=== PATIENT | female | born 1935 | race Hispanic/Latino ===

== ENCOUNTER 2017-09-30 20:56 | Observation (INO) | payer MEDICARE ==
[~2017-09-30] VITALS: Ht 154.9 cm; Wt 63.5 kg
[2017-09-30] MEDS ORDERED: SODIUM CHLORIDE 0.9% 500ML 500 ML IV ONE (21:21)
[2017-09-30 21:45] LABS: BASOPHILS % (AUTO) 0.4 % (0.0-5.0); EOSINOPHILS % (AUTO) 0.5 % (0.0-8.0); HEMATOCRIT 44.5 % (36-48); LYMPHOCYTES % (AUTO) 6.8 % (21.0-51.0); MEAN CORPUSCULAR HEMOGLOBIN 30.8 pg (27.0-33.0); MEAN CORPUSCULAR HGB CONC 35.4 g/dL (32.0-36.0); MONOCYTES % (AUTO) 2.5 % (3.0-13.0); NEUTROPHILS % (AUTO) 89.8 % (40.0-77.0); PLATELET COUNT (AUTO) 212 K/uL (130-400); RED BLOOD CELL COUNT(AUTO) 5.11 MIL/uL (4.00-5.50); WHITE BLOOD COUNT (AUTO) 9.1 K/uL (4.8-10.8)
[2017-09-30 21:57] LABS: RAPID GROUP A STREP NEGATIVE (NEGATIVE)
[2017-09-30 21:57] LABS: INR 0.95 (0.85-1.15); PARTIAL THROMBOPLASTIN TIME 25.3 SEC (26.3-35.5)
[2017-09-30 22:01] LABS: CREATININE 0.8 mg/dL (0.5-1.5); POTASSIUM 3.3 mmol/L (3.5-5.1)
[2017-09-30 22:06] LABS: ALBUMIN 4.4 g/dL (3.5-5.0); BILIRUBIN,TOTAL 0.7 mg/dL (0.2-1.0)
[2017-09-30 22:26] LABS: APPEARANCE,URINE Clear (CLEAR); BILIRUBIN,URINE Negative (NEGATIVE); COLOR,URINE Yellow (YELLOW); GLUCOSE, URINE (UA) Negative (NEGATIVE); KETONES,URINE 15 mg/dL (NEGATIVE); LEUKOCYTE ESTERASE ,URINE Small (NEGATIVE); NITRATE,URINE Negative (NEGATIVE); OCCULT BLOOD,URINE Negative (NEGATIVE); PH,URINE 5.5 (5.0-8.0); PROTEIN,URINE Negative (NEGATIVE); UROBILINOGEN,URINE 0.2 mg/dL (0.2-1.0)
[2017-09-30 22:30] LABS: B-TYPE NATRIURETIC PEPTIDE 13 pg/mL (0-100)
[2017-09-30] MEDS ORDERED: IOPAMIDOL-370 75 ML VIAL IV ONE (22:37)
[2017-09-30 22:44] LABS: BACTERIA,URINE Few /HPF (None Seen); MUCUS,URINE Many LPF (None Seen); RBC,URINE 0-1 /HPF (0-1); SQUAMOUS EPITHELIAL CELL,UR Many /HPF (0-2)
[2017-09-30] MEDS ORDERED: POTASSIUM CHLORIDE 10% ELIXIR 20 MEQ/15 ML UDCUP ONE (23:32)
[2017-09-30] MEDS ORDERED: MORPHINE SULFATE 4 MG/1ML SYG ONE (23:50)
[2017-10-01] MEDS ORDERED: LEVOFLOXACIN 500 MG/D5W 100 ML 100 ML ONE (00:42)
[2017-10-01] MEDS ORDERED: METRONIDAZOLE 500MG/100ML BAG 100 ML ONE ×2 (00:42→07:31)
[2017-10-01] MEDS ORDERED: ONDANSETRON HCL MDV 20ML 2 MG/ML VIAL ONE (01:41)
[2017-10-01] MEDS ORDERED: FAMOTIDINE/PF 20 MG/2 ML VIAL IV ONE (07:32)
[2017-10-01] MEDS ORDERED: SODIUM CHLORIDE 0.9% 1000ML 1,000 ML IV SCH (10:48)
[2017-10-01] MEDS ORDERED: NITROGLYCERIN 0.4 MG SL TAB SL PRN (11:00)
[2017-10-01] MEDS ORDERED: MORPHINE SULFATE 2 MG/ML 1ML SYG IV PRN (11:00)
[2017-10-01] MEDS ORDERED: LACTULOSE 20 GM/30 ML UDCUP PO PRN (11:00)
[2017-10-01] MEDS ORDERED: ONDANSETRON HCL 4 MG/2 ML VIAL IV PRN (11:00)
[2017-10-01] MEDS ORDERED: GUAIFENESIN-DM 200/20 MG 10 ML PO PRN (11:00)
[2017-10-01] MEDS ORDERED: MAG HYDROX/AL HYDROX/SIMETH ES 30 ML SUSP UDCUP PO PRN (11:00)
[2017-10-01] MEDS ORDERED: ACETAMINOPHEN 325 MG TAB PO PRN ×2 (11:00)
[2017-10-01] MEDS ORDERED: HYDRALAZINE HCL 20 MG/ML VIAL IV PRN (11:00)
[2017-10-01] MEDS: METRONIDAZOLE 500MG/100ML BAG 100 ML IV SCH ×3 (11:00→22:17)
[2017-10-01] MEDS ORDERED: ONDANSETRON HCL MDV 20ML 2 MG/ML VIAL IV PRN (11:06)
[2017-10-01 16:00] VITALS: BP 142/73
[2017-10-01] MEDS ORDERED: OMEP40CA37 PO (19:07)
[2017-10-01] MEDS ORDERED: LEVO125T11 PO (19:13)
[2017-10-01] MEDS ORDERED: AMLODIPINE PO (19:13)
[2017-10-01] MEDS ORDERED: TRAM50TA4 PO (19:13)
[2017-10-01 19:30] VITALS: BP 147/77
[2017-10-01] MEDS: ACETAMINOPHEN-CODEINE 300/30MG TAB PO PRN (21:27)
[2017-10-01 23:31] VITALS: BP 135/67
[2017-10-02 04:20] VITALS: BP 135/70
[2017-10-02 04:38] LABS: HEMATOCRIT 37.7 % (36-48); MEAN CORPUSCULAR HEMOGLOBIN 30.8 pg (27.0-33.0); MEAN CORPUSCULAR HGB CONC 35.1 g/dL (32.0-36.0); MEAN CORPUSCULAR VOLUME 87.6 fL (79-99); NUCLEATED RED BLOOD CELLS 0.1 % (0.0-0.19); PLATELET COUNT (AUTO) 180 K/uL (130-400); RED CELL DISTRIBUTION WIDTH 14.4 % (11.0-15.5); WHITE BLOOD COUNT (AUTO) 4.3 K/uL (4.8-10.8)
[2017-10-02 04:45] LABS: CREATININE 0.8 mg/dL (0.5-1.5); POTASSIUM 3.6 mmol/L (3.5-5.1)
[2017-10-02] MEDS: METRONIDAZOLE 500MG/100ML BAG 100 ML IV SCH (06:02)
[2017-10-02 08:00] VITALS: BP 138/77
[2017-10-02] MEDS: ACETAMINOPHEN-CODEINE 300/30MG TAB PO PRN (09:23)
[2017-10-02] MEDS ORDERED: FAMOTIDINE 20MG TAB 20 MG TAB PO SCH (13:00)
== END 2017-10-02 11:10 | disposition home or self-care (01) ==
LOC: EDH 20:56 → EDHIP 10-01 → 3BH 10-01 15:44
PROVIDERS: ADMIT Family Medicine; ATTEND Family Medicine
DX: K52.9 Noninfective gastroenteritis and colitis, unspecified (principal); I10 Essential (primary) hypertension; E78.5 Hyperlipidemia, unspecified; E87.6 Hypokalemia; E86.0 Dehydration; J43.9 Emphysema, unspecified; N39.0 Urinary tract infection, site not specified; Z82.49 Family history of ischemic heart disease and other diseases of the circulatory system; Z83.3 Family history of diabetes mellitus; Z90.710 Acquired absence of both cervix and uterus; Z90.49 Acquired absence of other specified parts of digestive tract
CPT/HCPCS: 36415 ×2; 70450; 74177; 80048; 80053; 81001; 82550; 83605; 83690; 83880; 84484; 85025; 85027; 85610; 85730; 87804 ×2; 87880; 93005; 96361 ×2; 96365; 96366 ×2; 99285; G0378 ×35; J1956; J2270; J3490 ×5; J7040; Q9967

== ENCOUNTER 2019-10-18 14:25 | Emergency (ER) | payer MEDICARE ==
[2019-10-18] MEDS ORDERED: ONDANSETRON HCL 4 MG/2 ML VIAL ONE (15:03)
== END 2019-10-18 17:26 | disposition home or self-care (01) ==
LOC: EDH 14:25
DX: R11.0 Nausea (principal); M54.5 Low back pain; F41.9 Anxiety disorder, unspecified; E03.9 Hypothyroidism, unspecified; R63.0 Anorexia; J44.9 Chronic obstructive pulmonary disease, unspecified; I10 Essential (primary) hypertension; K21.9 Gastro-esophageal reflux disease without esophagitis; Z90.710 Acquired absence of both cervix and uterus; Z90.49 Acquired absence of other specified parts of digestive tract; Z98.890 Other specified postprocedural states
CPT/HCPCS: 36415; 71045; 74176; 80053; 80305; 81003; 82150; 82550; 83690; 84443; 84484 ×2; 85025; 85610; 85730; 93005 ×2; 96374; 99285; J2405

== ENCOUNTER 2021-11-03 10:41 | Emergency (ER) | payer MEDICARE ==
[~2021-11-03] VITALS: Ht 152.4 cm; Wt 68.0 kg
[~2021-11-03 10:41] MED LIST: AMLO-257 PO; LEVO125T11 PO; LORA0.5T83 PO; TRAM50TA4 PO
[2021-11-03 11:29] LABS: EOSINOPHILS % (AUTO) 1.8 % (0.0-8.0); HEMATOCRIT 39.5 % (36-48); LYMPHOCYTES % (AUTO) 26.7 % (21.0-51.0); MEAN CORPUSCULAR HEMOGLOBIN 29.6 pg (27.0-33.0); MEAN CORPUSCULAR HGB CONC 34.4 g/dL (32.0-36.0); MEAN CORPUSCULAR VOLUME 85.9 fL (79-99); MONOCYTES % (AUTO) 7.4 % (3.0-13.0); NEUTROPHILS % (AUTO) 62.8 % (40.0-77.0); PLATELET COUNT (AUTO) 193 K/uL (130-400); RED CELL DISTRIBUTION WIDTH 12.7 % (11.0-15.5); WHITE BLOOD COUNT (AUTO) 6.7 K/uL (4.8-10.8)
[2021-11-03 11:38] LABS: CREATININE 0.6 mg/dL (0.5-1.5); POTASSIUM 3.8 mmol/L (3.5-5.1)
[2021-11-03 11:43] LABS: BILIRUBIN,TOTAL 0.5 mg/dL (0.2-1.0); TOTAL PROTEIN, SERUM 7.5 g/dL (6.0-8.3)
[2021-11-03 12:03] LABS: APPEARANCE,URINE CLEAR (CLEAR); BILIRUBIN,URINE NEGATIVE (NEGATIVE); COLOR,URINE YELLOW (YELLOW); GLUCOSE, URINE (UA) NEGATIVE (NEGATIVE); KETONES,URINE NEGATIVE (NEGATIVE); LEUKOCYTE ESTERASE ,URINE TRACE (NEGATIVE); NITRATE,URINE NEGATIVE (NEGATIVE); OCCULT BLOOD,URINE NEGATIVE (NEGATIVE); PH,URINE 5.5 (5.0-8.0); PROTEIN,URINE NEGATIVE (NEGATIVE); UROBILINOGEN,URINE 0.2 mg/dL (0.2-1.0)
[2021-11-03 12:36] LABS: BACTERIA,URINE Few /HPF (None Seen); RBC,URINE None Seen /HPF (0-1)
[2021-11-03] MEDS ORDERED: 0.9% NACL 500ML IV.SOLN 500 ML IV ONE (15:00)
[2021-11-03] MEDS ORDERED: METOCLOPRAMIDE 10 MG/2 ML VIAL IVP ONE (15:00)
[2021-11-03] MEDS ORDERED: DiphenhydrAMINE HCL 50 MG/ML VIAL IV ONE (15:00)
[2021-11-03] MEDS ORDERED: KETOROLAC 15MG/ML VIAL (15MG/ML) IV ONE (17:00)
[2021-11-03 17:39] VITALS: BP 145/75
== END 2021-11-03 17:35 | disposition home or self-care (01) ==
LOC: EDH 10:41
DX: R51.9 Headache, unspecified (principal); I10 Essential (primary) hypertension; Z79.899 Other long term (current) drug therapy; Z98.890 Other specified postprocedural states; Z90.49 Acquired absence of other specified parts of digestive tract
CPT/HCPCS: 36415; 70450; 80053; 81001; 85025; 96374; 96375; 99284; J1200; J1885; J2765; J7040